=== PATIENT | male | born 1955 | race Caucasian/White ===

== ENCOUNTER 2018-05-29 00:03 | Observation (INO) ==
[2018-05-29] MEDS ORDERED: Ipratropium/Albuterol Neb 3 ML IH ONE (00:29)
[2018-05-29] MEDS ORDERED: methylPREDNISolone 125 MG/2 ML VIAL IVP ONE (00:29)
--- NOTE | 2018-05-29 00:33 | Emergency Department Note ---
Disposition Clinical Impression: Acute exacerbation of chronic obstructive airways disease, Hemoptysis Disposition: Admitted As Inpatient Condition: Fair Time of Disposition: 03:00 SOB HPI - General Chief Complaint: ED Shortness of Breath/Dyspnea Stated Complaint: KARTHIK Time Seen by Provider: 05/29/18 00:18 Source: patient, family Mode of arrival: private vehicle Limitations: no limitations Nursing Notes Reviewed: Yes Vital Signs Reviewed: Yes - History of Present Illness Pt is a 63M that had a bronchoscopy with EBUS on Friday the at this facility, and then noted increased coughing with production of small amounts of blood in his sputum starting at 1100 on the . Pt has been short of breath all day, but was unable to take a day off for fear of losing his job. Pt is denying fevers or chills, but is endorsing some chest pain located in his sub xiphoid region and only occurs when he coughs. Pt smokes approx 8-10 ciggarettes per day and uses marijuana every day, but is trying to cut back. - Related Data Previous Rx's Medication Instructions Recorded GuaiFENesin/Codeine [Robitussin 10 ml PO Q6HR #120 liquid 02/27/16 w/Codeine] Levofloxacin [Levaquin] 750 mg PO DAILY #10 tablet 02/27/16 Albuterol Sulfate [Albuterol 2 puff IH Q4H PRN #1 inh 12/02/17 Inhaler] Clindamycin [Cleocin] 450 mg PO TID 10 Days #90 capsule 12/02/17 predniSONE [PredniSONE] 40 mg PO DAILY 5 Days #10 tablet 12/02/17 Allergies Allergy/AdvReac Type Severity Reaction Status Date / Time haloperidol [From Haldol] Allergy See Verified 12/01/17 23:36 Comments Penicillins Allergy See Verified 12/01/17 23:36 Comments Constitutional: Denies: fever, chills Cardiovascular: Reports: chest pain (with coughing), dyspnea on exertion Respiratory: Reports: cough, dyspnea, wheezes Gastrointestinal: Reports: abdominal pain. Denies: nausea, vomiting, diarrhea, constipation Neurological: Reports: weakness Past Medical History - Past Medical History Medical history: Reports: COPD, other Surgical history: Reports: non-contributory Psychiatric history: Reports: no psych history - Social History Smoking Status: Current every day smoker Smokeless Tobacco Status: No Alcohol use: Reports: none Drug use: Reports: none Physical Exam - General Limitations: no limitations General appearance: alert, in no apparent distress - Head Head exam: atraumatic, normocephalic - Eye Eye exam: Present: normal appearance, PERRL, EOMI - ENT ENT exam: normal exam, normal oropharynx - Neck Neck exam: Present: normal inspection, full ROM - Chest Chest inspection: Present: normal inspection, symmetric chest wall rise - Respiratory Respiratory exam: Present: wheezes, prolonged expiratory phase - Cardiovascular Cardiovascular exam: Present: regular rate, normal rhythm - Abdominal Exam Abdominal exam: Present: soft, tenderness - Extremities Exam Extremities exam: Present: normal inspection, full ROM - Back Exam Back exam: Present: normal inspection, full ROM - Neurological Exam Neurological exam: Present: alert - Psychiatric Psychiatric exam: Present: normal affect, normal mood - Skin Skin exam: Present: warm, dry, intact Course Course Narrative: Pt was 88% on RA in triage and was placed on 4L O2 by NC. Will get screening labs to include CBC, BMP, troponin. EKG. Pt is complaining of hemoptysis, is feeling short of breath. Despite recent procedure, will get CTA to r/o parenchymal hemorrhage/PE. Disposition pending. Vital Signs Temperature 98.1 F 05/29/18 00:06 Pulse Rate 95 05/29/18 00:06 Respiratory Rate 22 05/29/18 00:06 Blood Pressure 135/94 05/29/18 00:06 O2 Sat by Pulse Oximetry 88 05/29/18 00:06 Temperature 98.1 F 05/29/18 00:06 Pulse Rate 91 05/29/18 01:33 Respiratory Rate 21 05/29/18 01:33 Blood Pressure 136/93 05/29/18 01:33 O2 Sat by Pulse Oximetry 96 05/29/18 01:33 Oxygen Delivery Oxygen Delivery Nasal Cannula Shortness of Breath/Dyspnea - MDM Narrative Medical decision making narrative: Pts lab work was not consistent with infectious etiology but CTA showed opacifications that could be bronch fluid/blood, additionally, pt is not normally oxygen dependent and is requiring 2L to maintain saturation >95%. He was wheezing in all lung saez on arrival but after 3 breathing treatments, his wheezing has improved to where he only has inspiratory wheezing on the left upper and middle areas. Pt remains very short of breath with any movement and will drop saturation to 86-88% when taken off oxygen. Hospitalist, Dr. Shane chavez. Pt remained hemodynamically stable while in the department. Saturation would drop to 86% on RA, so pt was kept on 2-3L NC O2. - Medical Records Medical records reviewed: Yes I reviewed the patient's medical records. - Lab Data Lab results reviewed: Yes I reviewed the patient's lab results. Result diagrams: 05/29/18 00:29 05/29/18 00:29 Lab Results 05/29/18 05/29/18 Range/Units 00:29 00:29 WBC 10.6 (4.3-11.1) K/mcL RBC 4.12 L (4.19-5.50) M/mcL Hgb 12.0 L (12.9-16.9) g/dL Hct 36.4 L (37.5-50.1) % MCV 88.3 (83.0-100.0) fL MCH 29.1 (28.0-33.3) pg MCHC 33.0 (31.6-35.5) g/dL RDW 14.2 (11.5-14.5) % Plt Count 180 (140-400) K/mcL MPV 8.9 L (9.4-12.4) fL Immature Gran % 0.2 (0-4) % Seg Neutrophils % 69.9 % Lymphocytes % 21.1 % Monocytes % 8.0 % Eosinophils % 0.3 % Basophils % 0.5 % Neutrophils # 7.4 (1.6-8.9) K/mcL Lymphocytes # 2.2 (0.6-4.6) K/mcL Monocytes # 0.8 (0.0-1.3) K/mcL Eosinophils # 0.0 (0.0-0.6) K/mcL Basophils # 0.1 (0.0-0.2) K/mcL Sodium 142 (136-145) mEq/L Potassium 3.9 (3.5-5.1) mEq/L Chloride 107 (98-107) mEq/L Carbon Dioxide 29 (23-29) mEq/L BUN 20 (8-23) mg/dL Creatinine 0.92 (0.70-1.30) mg/dL Est GFR ( Amer) > 60 (> 60) Est GFR (Non-Af Amer) > 60 (> 60) BUN/Creatinine Ratio 22 (6-26) Glucose 110 H (70-105) mg/dL Calculated Osmolality 297 (280-300) Calcium 9.2 (8.6-10.3) mg/dL Troponin I < 0.03 (< 0.04) ng/mL - Radiology Data Radiology results reviewed: Yes I reviewed the patient's radiology results. Chest CTA 05/29/18 00:38 IMPRESSION: 1. No definite scan evidence for pulmonary embolus. 2. Airway opacification could be due to bronchoscopy fluid, secretions, or hemorrhage. 3. Otherwise no change. D/ / Carlos Greene MD / Carlos Greene MD Interpreting Provider: Carlos Greene MD - EKG Data EKG attestation: Yes I reviewed and interpreted this EKG. EKG results narrative: HR 62 and regular. Rhythm sinus. Birney 91 and mildly rightward. MO 120, QRS 86, QTc 397 - all WNL. Baseline wander in V3. No evidence of ST elevation or depression. Poor R wave progression with isoelectric point between V4-V5.
[2018-05-29] MEDS ORDERED: Isovue-370 500 ML BOTTLE IVP ONE (00:38)
[2018-05-29 00:39] LABS: Basophils # 0.1 K/mcL (0.0-0.2); Basophils % 0.5 %; Eosinophils % 0.3 %; Hematocrit 36.4 % (37.5-50.1); Immature Granulocytes % 0.2 % (0-4); Lymphocytes # 2.2 K/mcL (0.6-4.6); Lymphocytes % 21.1 %; Mean Corpuscular Hemoglobin 29.1 pg (28.0-33.3); Mean Corpuscular Volume 88.3 fL (83.0-100.0); Mean Platelet Volume 8.9 fL (9.4-12.4); Monocytes # 0.8 K/mcL (0.0-1.3); Neutrophils # 7.4 K/mcL (1.6-8.9); Platelet Count 180 K/mcL (140-400); Red Blood Count 4.12 M/mcL (4.19-5.50); Red Cell Distribution Width 14.2 % (11.5-14.5); Segmented Neutrophils % 69.9 %
[2018-05-29 01:01] LABS: BUN/Creatinine Ratio 22 (6-26); Blood Urea Nitrogen 20 mg/dL (8-23); Calcium 9.2 mg/dL (8.6-10.3); Carbon Dioxide 29 mEq/L (23-29); Chloride 107 mEq/L (98-107); Glucose 110 mg/dL (70-105); Osmolality,Calculated 297 (280-300); Potassium 3.9 mEq/L (3.5-5.1); Sodium 142 mEq/L (136-145); Troponin I < 0.03 ng/mL (< 0.04); eGFR For Non-African Americans > 60 (> 60)
[2018-05-29] MEDS ORDERED: Acetaminophen 325 MG TABLET PO PRN (02:53)
[2018-05-29] MEDS ORDERED: traMADol 50 MG TABLET PO PRN (02:53)
[2018-05-29] MEDS ORDERED: GuaiFENesin/Codeine Oral Soln 5 ML UDC PO PRN (03:21)
--- NOTE | 2018-05-29 03:24 | Internal Med History&Physical ---
Date of Encounter: 05/29/18 Time of Encounter: 03:20 Internal Medicine - H&P: HPI Chief complaint: Shortness of breath Admitted From: Home Plans for Post Hospital Care: Home History of present illness: Bipin Sosa is a 63-year-old male chronic tobacco and marijuana smoker with COPD who has been evaluated by the pulmonary service for a lung nodule found on CT scan. He was seen to have a spiculated nodule in the right basilar right lower lobe. He underwent bronchoscopy on 05/27 with a transbronchial nee dle aspiration of the lesion in the right hilum via EBUS with specimen sent for cytology. He states that when he went home he noticed increased coughing with production of small amounts of sputum yesterday morning. He progressively became more short of breath as the day progressed with some pain in his sub-xyphoid region when he coughs. He says he did not seek medical attention earlier as he was afraid to lose his job. He continues to smoke. In the ER he was notably wheezy and hypoxic on room air. He received IV steroids and nebulizer therapy. CTA done showed airway opacification which could be due to bronchoscopy fluid, secretions or hemorrhage but no other acute findings. He is admitted for further observation. Past Med Surg Social Fam HX - Past Medical History Medical history: COPD, other Additional medical history: pneumonia Psychiatric history: no psych history - Past Surgical History Surgical History: non-contributory Additional surgical history: lung biopsy - Social History Smoking Status: Current every day smoker Smokeless Tobacco Status: No Alcohol use: none Drug use: none Internal Medicine - H&P: Meds GuaiFENesin/Codeine [Robitussin w/Codeine] 10 ml PO Q6HR #120 liquid 02/27/16 [Rx] Levofloxacin [Levaquin] 750 mg PO DAILY #10 tablet 02/27/16 [Rx] Albuterol Sulfate [Albuterol Inhaler] 2 puff IH Q4H PRN #1 inh 12/02/17 [Rx] RX: Clindamycin [Cleocin] 450 mg PO TID 10 Days #90 capsule 12/02/17 [Rx] predniSONE [PredniSONE] 40 mg PO DAILY 5 Days #10 tablet 12/02/17 [Rx] Allergy/AdvReac Type Severity Reaction Status Date / Time haloperidol [From Haldol] Allergy See Verified 12/01/17 23:36 Comments Penicillins Allergy See Verified 12/01/17 23:36 Comments All Systems PM: A 10-system review of systems was performed and is negative for pertinent findings except as documented above in the HPI.Family history reviewed and found non-contributory. - Constitutional Vitals: Temp Pulse Resp BP Pulse Ox 98.1 F 91 21 136/93 96 05/29/18 00:06 05/29/18 01:33 05/29/18 01:33 05/29/18 01:33 05/29/18 01:33 Exam: Vitals: Reviewed General: Thin white man lying in bed in NAD Skin: Warm and supple. HEENT: Moist mucous membranes. No conjunctivae pallor. Neck: No lymphadenopathy. No JVD. No carotid bruits. No palpable thyroid. Chest: Scattered wheezes in the upper lung saez. Heart: Normal S1 & S2; rhythmic. No rubs or murmurs. Abdomen: Epigastric tenderness to palpation. No peritoneal reaction. Extremities: No clubbing, cyanosis or edema. No calf tenderness. Normal distal pulses. Neurological: Awake, alert and oriented to person, place and time. No focal deficits. Psych: Affect appropriate. Internal Med - H&P Results - Labs CBC & Chem 7: 05/29/18 00:29 05/29/18 00:29 Labs: Short CBC 05/29/18 Range/Units 00:29 WBC 10.6 (4.3-11.1) K/mcL Hgb 12.0 L (12.9-16.9) g/dL Hct 36.4 L (37.5-50.1) % Plt Count 180 (140-400) K/mcL Neutrophils # 7.4 (1.6-8.9) K/mcL BMP 05/29/18 00:29 Sodium 142 Potassium 3.9 Chloride 107 Carbon Dioxide 29 BUN 20 Creatinine 0.92 Glucose 110 H Calcium 9.2 Cardiac Enzymes 05/29/18 Range/Units 00:29 Troponin I < 0.03 (< 0.04) ng/mL - Impressions ITS Impressions Chest CTA 05/29/18 00:38 IMPRESSION: 1. No definite scan evidence for pulmonary embolus. 2. Airway opacification could be due to bronchoscopy fluid, secretions, or hemorrhage. 3. Otherwise no change. D/ / Carlos Greene MD / Carlos Greene MD Interpreting Provider: Carlos Greene MD - Assessment and plan (1) Acute respiratory failure with hypoxia Current Visit: Yes Status: Acute Assessment and plan: Seen to develop after bronchoscopy but the etiology remains unclear. No signs of acute complication such as pneumothorax/mediastinum noted. Possibly multifactorial for acumulation of secretions, anesthetic effect and bleeding from site of biopsy. Will continue to monitor and provide symptomatic relief with anti-tussive agents, nebulizer steroid and steroids. He will benefit from pulmonary follow up. (2) Acute exacerbation of chronic obstructive airways disease Current Visit: Yes Status: Acute Assessment and plan: Therapy as discussed above. (3) Hemoptysis Current Visit: Yes Status: Acute Assessment and plan: Steroids and nebulizer therapy as indicated above. Close respiratory watch. Likely post-procedural complication. (4) Smoker Current Visit: Yes Status: Acute Assessment and plan: 5 minutes were spent counseling and educating the patient on this habit. gate services supervisor and resources were made available. (5) DVT prophylaxis Current Visit: Yes Status: Acute Assessment and plan: IPC ordered in the setting of hemoptysis and recent biopsy. - Time Spent With Patient Total time spent is greater than 50% in coordination of care (as documented) at patient's floor/unit and/or counseling patient: Greater than 35 minutes
--- NOTE | 2018-05-29 04:01 | Emergency Department Note ---
Disposition Clinical Impression: Acute exacerbation of chronic obstructive airways disease, Hemoptysis Disposition: Admitted As Inpatient Condition: Fair General Adult HPI - General Chief complaint: ED Shortness of Breath/Dyspnea Stated complaint: KARTHIK Time Seen by Provider: 05/29/18 00:18 Source: patient, family Mode of arrival: private vehicle Limitations: no limitations Nursing Notes Reviewed: Yes Vital Signs Reviewed: Yes - History of Present Illness Pain Scale: 0 - Related Data Previous Rx's Medication Instructions Recorded GuaiFENesin/Codeine [Robitussin 10 ml PO Q6HR #120 liquid 02/27/16 w/Codeine] Levofloxacin [Levaquin] 750 mg PO DAILY #10 tablet 02/27/16 Albuterol Sulfate [Albuterol 2 puff IH Q4H PRN #1 inh 12/02/17 Inhaler] Clindamycin [Cleocin] 450 mg PO TID 10 Days #90 capsule 12/02/17 predniSONE [PredniSONE] 40 mg PO DAILY 5 Days #10 tablet 12/02/17 Allergies Allergy/AdvReac Type Severity Reaction Status Date / Time haloperidol [From Haldol] Allergy See Verified 12/01/17 23:36 Comments Penicillins Allergy See Verified 12/01/17 23:36 Comments Constitutional: Denies: fever, chills Cardiovascular: Reports: chest pain (with coughing), dyspnea on exertion Respiratory: Reports: cough, dyspnea, wheezes Gastrointestinal: Reports: abdominal pain. Denies: nausea, vomiting, diarrhea, constipation Neurological: Reports: weakness Past Medical History - Past Medical History Medical history: Reports: COPD, other Surgical history: Reports: non-contributory Psychiatric history: Reports: no psych history - Social History Smoking Status: Current every day smoker Smokeless Tobacco Status: No Alcohol use: Reports: none Drug use: Reports: none Physical Exam - General Limitations: no limitations General appearance: alert, in no apparent distress Course Vital Signs Temperature 98.1 F 05/29/18 00:06 Pulse Rate 95 05/29/18 00:06 Respiratory Rate 05/29/18 00:06 Blood Pressure 135/94 05/29/18 00:06 O2 Sat by Pulse Oximetry 88 05/29/18 00:06 Temperature 98.1 F 05/29/18 00:06 Pulse Rate 91 05/29/18 01:33 Respiratory Rate 22 05/29/18 03:22 Blood Pressure 127/84 05/29/18 03:22 O2 Sat by Pulse Oximetry 96 05/29/18 01:33 Oxygen Delivery Oxygen Delivery Nasal Cannula Medical Decision Making - Medical Records Medical records reviewed: Yes I reviewed the patient's medical records. - Lab Data Lab results reviewed: Yes I reviewed the patient's lab results. Result diagrams: 05/29/18 00:29 05/29/18 00:29 Lab Results 05/29/18 05/29/18 Range/Units 00:29 00:29 WBC 10.6 (4.3-11.1) K/mcL RBC 4.12 L (4.19-5.50) M/mcL Hgb 12.0 L (12.9-16.9) g/dL Hct 36.4 L (37.5-50.1) % MCV 88.3 (83.0-100.0) fL MCH 29.1 (28.0-33.3) pg MCHC 33.0 (31.6-35.5) g/dL RDW 14.2 (11.5-14.5) % Plt Count 180 (140-400) K/mcL MPV 8.9 L (9.4-12.4) fL Immature Gran % 0.2 (0-4) % Seg Neutrophils % 69.9 % Lymphocytes % 21.1 % Monocytes % 8.0 % Eosinophils % 0.3 % Basophils % 0.5 % Neutrophils # 7.4 (1.6-8.9) K/mcL Lymphocytes # 2.2 (0.6-4.6) K/mcL Monocytes # 0.8 (0.0-1.3) K/mcL Eosinophils # 0.0 (0.0-0.6) K/mcL Basophils # 0.1 (0.0-0.2) K/mcL Sodium 142 (136-145) mEq/L Potassium 3.9 (3.5-5.1) mEq/L Chloride 107 (98-107) mEq/L Carbon Dioxide 29 (23-29) mEq/L BUN 20 (8-23) mg/dL Creatinine 0.92 (0.70-1.30) mg/dL Est GFR ( Amer) > 60 (> 60) Est GFR (Non-Af Amer) > 60 (> 60) BUN/Creatinine Ratio 22 (6-26) Glucose 110 H (70-105) mg/dL Calculated Osmolality 297 (280-300) Calcium 9.2 (8.6-10.3) mg/dL Troponin I < 0.03 (< 0.04) ng/mL - Radiology Data Radiology results reviewed: Yes I reviewed the patient's radiology results. Chest CTA 05/29/18 00:38 IMPRESSION: 1. No definite scan evidence for pulmonary embolus. 2. Airway opacification could be due to bronchoscopy fluid, secretions, or hemorrhage. 3. Otherwise no change. D/ / Carlos Greene MD / Carlos Greene MD Interpreting Provider: Carlos Greene MD - EKG Data EKG #1 EKG attestation: Yes I reviewed and interpreted this EKG. EKG results narrative: EKG shows a normal sinus rhythm with ventricular rate is 76. Right axis deviation. No acute ST segment elevation or depression. No significant change compared to prior EKG dated 04/12/2013. Attestation Statement - Attestation Attestation: I, Glenroy Elmore MD, personally evaluated this patient and discussed their management with the resident physician. I reviewed the resident's note and agree with the documented findings, medical decision making, and plan of care. 63-year-old male presents to the emergency department with complaint of increasing shortness of breath and hemoptysis over the past 36 hours. Patient has a history of COPD but is not on home oxygen. He had a bronchoscopy with multiple biopsies about 36 hours ago for some pulmonary nodules. He states that since the bronchoscopy he has gone downhill. Since going home he has been increasingly more short of breath. He has had a cough with some hemoptysis. Also some sharp chest pains with coughing or deep breathing. He states the shortness of breath is worse with exertion. On examination patient is a well-developed well-nourished male in no acute distress. He is alert and oriented 3. There is no cyanosis or diaphoresis. Breath sounds are equal bilaterally with some left inspiratory mid lung wheezes. Heart regular rate and rhythm. Abdomen soft and nontender with normal bowel sounds. EKG shows normal sinus rhythm with no acute ischemic changes. CTA of the chest obtained and showed no evidence of pulmonary embolism. It did show some opacification of airways which could be due to bronchoscopy fluids or secretions or hemorrhage. Labs reviewed. Patient received 3 DuoNeb treatments and Solu-Medrol here in the emergency department. He continued to complain of shortness of breath after the treatments, especially with any exertion. He states he got really short of breath when he had moved from the stretcher onto the CT table. Patient's nasal oxygen was discontinued and his oxygen saturation dropped down as low as 86% on room air while at rest sitting up on the stretcher. The hospitalist, Dr. Lynn, was consulted and accepted admission of the patient.
[2018-05-29] MEDS: Ipratropium/Albuterol Neb 3 ML IH SCH ×5 (04:48→20:29)
[2018-05-29] MEDS: predniSONE 20 MG TABLET PO SCH (10:13)
--- NOTE | 2018-05-29 11:54 | Event Note ---
Date of Encounter: 05/29/18 Time of Encounter: 11:52 Patient was seen and examined earlier this morning by hospitalist services. I have seen and examined patient bedside currently patient is in bed denies any chest pain or shortness of breath at this time. However he states that he does experience chest pain during coughing as well as shortness of breath on exertion. Denies any hemoptysis at this time or sputum production. Does not appear to be in any respiratory distress currently on oxygen at 2 L nasal cannula normally does not require oxygen supplementation. I did review the treatment plan with the patient and his who are bedside who verbalized understanding. I did discuss this case with pulmonology who will see patient up on consult. Currently patient is hemodynamically stable at this time.
--- NOTE | 2018-05-29 12:28 | Pulmonology Consult Note ---
<Fatuma Blanoc - Last Filed: 05/29/18 14:15> Date of Encounter: 05/29/18 Time of Encounter: 12:10 Assessment and Plan (1) Acute respiratory failure with hypoxia Current Visit: Yes Status: Acute Pt is a 63-year-old male with past medical history significant for COPD with chronic tobacco and marijuana use, recently evaluated for lung nodule on CT scan suspicious for malignancy. Patient notes that upon going home after bronchoscopy on 05/27/18, he has had increasing cough with production of small amounts of sputum. - Requiring increasing amount of O2 due to increased SOB - Pain with coughing, especially under B/L lower ribs - Three episodes of bloody sputum; none since admission Chest CTA (05/29/18): - No definite scan evidence for PE - Airway opacification could could be due to bronchoscopy fluid, secretions, or hemorrhage PLAN: Acute respiratory failure with hypoxia likely secondary to COPD exacerbation with mild pulmonary hemorrhage s/p bronchoscopy and EBUS 2 days ago; No evidence of PE or current bleed - Cont supplemental O2; titrate to keep O2 sat > 88% - Cont prednisone 40mg QD for 5 days; discharge with prednisone taper; 10mg every 3 days - Cont scheduled Duonebs - Out of bed into Chair - PT/OT - Incentive Spirometry - Walk test prior to discharge; may need to send home with supplemental O2 - Follow up outpatient Pulm with Dr. Dong - will decide on continuing O2 at that point - Cough Medication/ Pain control PRN to encourage respiration (2) Acute exacerbation of chronic obstructive airways disease Current Visit: Yes Status: Acute History of severe COPD PFTs (02/26/18): Spirometry shows severe airway obstructive pattern Following Bronchodilator, there is significant improvement in FVC by 17%. Following Bronchodilator, there is significant improvement in FEV1 by 12%. MVV is decreased. Increased Lung Volumes reveal hyperinflation and air trapping. Diffusion Capacity is severely reduced. Flow Volume Loop: Obstructive PLAN: Likely acute COPD exacerbation secondary to bronchoscopy with mild pulmonary hemorrhage leading to inflammation of airways - Cont Prednisone 40mg QD for 5 days; taper 10mg every 3 days thereafter - Cont scheduled duonebs - Out of bed into chair - PT/OT - Cont O2 via NC; titrate to keep > 88%; may need O2 upon discharge - perform walk test prior to discharge - Follow up outpatient Pulm with Dr. Dong to evaluate duration of O2 use (3) Pulmonary hemorrhage Current Visit: Yes Status: Acute S/P Bronchoscopy with EBUS and biopsy - Seems to be resolving - No acute concerns PLAN: - Cont to monitor vitals; titrate to keep O2 sat > 88% - Pain control PRN to encourage respiration - Plan as above (4) Smoker Current Visit: Yes Status: Acute 0.25 PPD smoker, and daily marijuana smoker Discussed smoking cessation PLAN: - Nicotine Patch PRN History of Present Illness Consult date: 05/29/18 Requesting physician: Cristina Shabazz Reason for consult: dyspnea, other (Hemoptysis) Chief complaint: Hemoptysis History of present illness: Pt is a 63-year-old male with past medical history significant for COPD with chronic tobacco and marijuana use, recently evaluated for lung nodule on CT scan suspicious for malignancy. Patient notes that upon going home after bronchoscopy on 05/27/18, he has had increasing cough with production of small amounts of sputum. States that every time he coughs, he feels sharp 10 out of 10 pain underneath his ribs bilaterally. Additionally he has had increasing shortness of breath with exertion, so much so that he has been having trouble walking from his bed in his room to the bathroom. States that he tried to go to work yesterday, but he had stopped every couple minutes to catch his breath. Notes 3 instances during which he coughed up sputum with a nickel-sized amount blood. At baseline at home, patient does not use any oxygen. States only medications include rescue inhaler as needed. Notes most of symptoms began after bronchoscopy procedure 2 days ago. Currently resting in bed in no acute distress. However, is noticeably short of breath with speaking to me. O2 sats are appropriate on 3 L of O2 via nasal cannula. Lungs clear to auscultationno wheezes, rales, rhonchi, crackles. Pulmonology consulted for further evaluation of hemoptysis. Otherwise, denies fevers/chills, headache, ear pain, nasal,/sinus congestion, sore throat, chest pain, palpitations, wheezing, abdominal pain, nausea, vomiting, diarrhea. Notes he smoked 3 and half cigarettes yesterday, and 1 marijuana cigarette. Bronchoscopy (05/27/18): - Right Lower Lobe Nodule - Adenopathy - Abnormal CT scan of the chest - Bronchitic changes were found - Transbronchial brushings, transbronchial lung biopsies, BLL, transbronchial needle aspiration, EBUS performed - Rapid on-site evaluation: Presents cytology of lesion in right hilum suggestive of atypical cells Right Lower Lobe Lung Biopsy (05/27/18): Reactive bronchial mucosa, cartilage and congested vessels Chest CTA (05/29/18): - No definite scan evidence for PE - Airway opacification could could be due to bronchoscopy fluid, secretions, or hemorrhage Past Med Surg Social Fam HX - Past Medical History Attestation: Yes The following information was validated with the patient. Source: patient, old records reviewed Medical history: COPD, other Additional medical history: pneumonia Psychiatric history: no psych history - Past Surgical History Surgical History: non-contributory Additional surgical history: lung biopsy - Social History Smoking Status: Current every day smoker Packs per day: 0.25 Smokeless Tobacco Status: No Alcohol use: none Drug use: none - Family History Mother Name: TESSIE Family Member Ethnicity: Non- Living Status: Age at : 72 Cause of : HEART DISEASE Hx Family Cardiac Disorders: Yes Hx Family Respiratory Disorders: No Hx Family Cancer: No Hx Family GI Disorders: No Hx Family Genitourinary Disorders: No Hx Family Endocrine Disorder: No Hx Family Musculoskeletal Disorders: No Hx Family Neuromuscular Disorders: No Hx Family Neurologic Disorders: No Hx Family HEENT Disorders: No Hx Family Autoimmune Disorders: No Hx Family Reproductive Disorders: No Hx Family Psychosocial Disorders: No Hx Family Medical Disorders: No Medications and Allergies GuaiFENesin/Codeine [Robitussin w/Codeine] 10 ml PO Q6HR #120 liquid 02/27/16 [Rx] Albuterol Sulfate [Albuterol Inhaler] 2 puff IH Q4H PRN #1 inh 12/02/17 [Rx] Ibuprofen 800 mg PO DAILY PRN 05/29/18 [History] Allergy/AdvReac Type Severity Reaction Status Date / Time haloperidol [From Haldol] Allergy See Verified 12/01/17 23:36 Comments Penicillins Allergy See Verified 12/01/17 23:36 Comments All Systems: The remainder of the systems were reviewed and are negative - Constitutional Constitutional: chills, fatigue, no anorexia, no fever(s), no headache(s), no weakness - EENT Eyes: no loss of vision Ears: no decreased hearing Nose, mouth and throat: no dizziness, no headache(s), no nasal congestion, no post-nasal drip, no sinus pain, no sore throat - Cardiovascular Cardiovascular: dyspnea, dyspnea on exertion, no chest pain, no chest pain at rest, no radiating jaw, neck or arm pain, no lightheadedness, no palpitations - Respiratory Respiratory: cough, dyspnea, hemoptysis, dyspnea on exertion, no wheezing, no chest congestion - Gastrointestinal Gastrointestinal: no abdominal pain, no diarrhea, no nausea, no vomiting - Musculoskeletal Musculoskeletal: no weakness, no back pain - Integumentary Integumentary: no rash - Neurological Neurological: no dizziness, no headache(s) Physical Examination Vital Signs: Vital Signs, Last 4 Hours Temp Pulse Resp BP Pulse Ox 05/29/18 11:45 17 98 05/29/18 11:29 97.7 F 64 15 122/76 97 General appearance: no acute distress, alert Eyes: nonicteric ENT: oropharynx moist Neck: supple Effort: normal Auscultation: bilateral: clear (No wheezes, rales, rhonchi), other (Chest wall tender to palpation underneath bilateral ribs; otherwise no anterior chest wall tenderness) Cardiovascular: regular rate and rhythm Gastrointestinal: normoactive bowel sounds, soft, non-tender, non-distended Integumentary: normal Extremities: no cyanosis, no edema normal mental status, non-focal exam, pupils equal and round, CN II-XII normal mood appropriate, affect normal Results - Laboratory Findings CBC and BMP: 05/29/18 00:29 05/29/18 00:29 Abnormal lab findings: Abnormal lab results RBC 4.12 M/mcL (4.19-5.50) L 05/29/18 00:29 Hgb 12.0 g/dL (12.9-16.9) L 05/29/18 00:29 Hct 36.4 % (37.5-50.1) L 05/29/18 00:29 MPV 8.9 fL (9.4-12.4) L 05/29/18 00:29 Glucose 110 mg/dL (70-105) H 05/29/18 00:29 - Clinical Findings Intake & Output: Intake & Output 05/28/18 05/29/18 05/29/18 23:59 07:59 15:59 Weight 64.864 kg Consult Discharge Plan - Plan Referrals: Guero Joe DO [Primary Care Provider] - <MarielaMadhu W - Last Filed: 05/29/18 14:37> Date of Encounter: 05/29/18 All Systems: The remainder of the systems were reviewed and are negative Physical Examination Vital Signs: Vital Signs, Last 4 Hours Temp Pulse Resp BP Pulse Ox 05/29/18 11:45 17 98 05/29/18 11:29 97.7 F 64 15 122/76 97 Results - Laboratory Findings CBC and BMP: 05/29/18 00:29 05/29/18 00:29 Abnormal lab findings: Abnormal lab results RBC 4.12 M/mcL (4.19-5.50) L 05/29/18 00:29 Hgb 12.0 g/dL (12.9-16.9) L 05/29/18 00:29 Hct 36.4 % (37.5-50.1) L 05/29/18 00:29 MPV 8.9 fL (9.4-12.4) L 05/29/18 00:29 Glucose 110 mg/dL (70-105) H 05/29/18 00:29 - Clinical Findings Intake & Output: Intake & Output 05/28/18 05/29/18 05/29/18 23:59 07:59 15:59 Intake Total 360 / 360 Balance 360 / 360 Weight 64.864 kg - Attending Attestation I examined this patient and my medical decision-making was reviewed with the Resident Physician. I agree with the documented findings, disposition and treatment plan as described except to the extent set forth below. We independently had [id number] contact with the patient Patient seen and examined at bedside Labs, radiology, chart personally reviewed. Impression/Recs: Acute hypoxic respiratory failure Pulmonary hemorrhage - postprocedural COPD with exacerbation Lung nodules Tobacco abuse Overall Mr. Sosa is doing okay today he will need a steroid burst followed by taper. May need oxygen for short period of time but suspected this can be weaned off in clinic would recommend walking pulse oximetry 5 prior to discharge. Follow-up in pulmonary clinic in one week this has already been scheduled to discuss results of biopsy for lung nodules for which primary lung malignancy is in the differential. Tobacco cessation encouraged
[2018-05-30] MEDS: Ipratropium/Albuterol Neb 3 ML IH SCH ×7 (00:15→23:55)
[2018-05-30] MEDS: predniSONE 20 MG TABLET PO SCH (08:45)
--- NOTE | 2018-05-30 09:57 | Electrocardiograph Report ---
[address] [address] Test Date: 2018-05-29 Pat Name: Bipin Sosa Department: EXAM3 Room: 3B Gender: M Gate Watchman: : 1955 Requested By: Marian Lindsey Order Number: [id number] Reading MD: Analia Paniagua Measurements Intervals [place] Rate: 76 P: 84 MD: 120 QRS: 91 QRSD: 86 T: 67 QT: 353 QTc: 397 Interpretive Statements Sinus rhythm Right axis deviation Electronically Signed On 05-30-2018 9:55:56 EST by Analia Paniagua
--- NOTE | 2018-05-30 18:31 | Internal Med Progress Note ---
Hospitalist Progress Note - Encounter Date of Encounter: 05/30/18 Time of Encounter: 11:00 - Subjective Interval History: Patient seen and examined at bedside currently patient and bleeding back in the bathroom appears to be experiencing shortness of breath. He is requiring oxygen supplementation at this time. Noted conversational dyspnea. Review treatment plan with the patient who verbalized understanding - Exam Vitals: Temp Pulse Resp BP Pulse Ox 98.0 F 93 18 136/83 93 05/30/18 15:54 05/30/18 15:54 05/30/18 16:03 05/30/18 15:54 05/30/18 16:06 Exam: Vitals: Reviewed General: Thin white man appears to be in mild respiratory distress Skin: Warm and supple. HEENT: Moist mucous membranes. No conjunctivae pallor. Neck: No lymphadenopathy. No JVD. No carotid bruits. No palpable thyroid. Chest: Faint Scattered wheezes in the upper lung saez. Heart: Normal S1 & S2; rhythmic. No rubs or murmurs. Abdomen: Epigastric tenderness to palpation. No peritoneal reaction. Extremities: No clubbing, cyanosis or edema. No calf tenderness. Normal distal pulses. Neurological: Awake, alert and oriented to person, place and time. No focal deficits. Psych: Affect appropriate. - Assessment and Plan (1) Acute exacerbation of chronic obstructive airways disease Current Visit: Yes Status: Acute Assessment and Plan: Continue with oxygen supplementation Continue with prednisone 40 mg daily for 5 days discharge are prednisone taper 10 mg every 3 days Continue with DuoNeb's Encourage to ambulate. Incentive spirometry PT OT Walk test prior to discharge may require home oxygen (2) Hemoptysis Current Visit: Yes Status: Acute Assessment and Plan: Seen by pulmonary status post bronchoscopy with a Bosson biopsy appears to be resolving no hemoptysis today. Continue pain control encouraged to cough and deep breathe (3) Smoker Current Visit: Yes Status: Acute Assessment and Plan: Encourage smoking cessation (4) Acute respiratory failure with hypoxia Current Visit: Yes Status: Acute Assessment and Plan: Secondary to significant COPD and chronic tobacco marijuana use recently evalu ated for lung nodule CT scan suspicious for malignancy. Requiring increasing O2 supplementation Pain with cough continue with pain management Requires walk prior to discharge for home oxygen Continue with oxygen titrated to maintain SPO2 greater than 90% (5) DVT prophylaxis Current Visit: Yes Status: Acute Assessment and Plan: IPC ordered in the setting of hemoptysis and recent biopsy. - Time Spent with Patient Total time spent is greater than 50% in coordination of care (as documented) at patient's floor/unit and/or counseling patient: Internal Medicine: Result - Labs CBC & Chem 7: 05/29/18 00:29 05/29/18 00:29 Consult Discharge Plan - Plan Referrals: Guero Joe DO [Primary Care Provider] -
[2018-05-31] MEDS: Ipratropium/Albuterol Neb 3 ML IH SCH ×4 (04:36→16:01)
[2018-05-31] MEDS: predniSONE 20 MG TABLET PO SCH (08:37)
[2018-05-31 09:08] LABS: Basophils % 0.2 %; Eosinophils % 0.4 %; Hematocrit 37.4 % (37.5-50.1); Hemoglobin 12.4 g/dL (12.9-16.9); Immature Granulocytes % 0.3 % (0-4); Lymphocytes # 2.3 K/mcL (0.6-4.6); Lymphocytes % 22.6 %; Mean Corpuscular HGB Conc 33.2 g/dL (31.6-35.5); Mean Corpuscular Hemoglobin 29.5 pg (28.0-33.3); Mean Corpuscular Volume 88.8 fL (83.0-100.0); Mean Platelet Volume 9.4 fL (9.4-12.4); Monocytes # 0.7 K/mcL (0.0-1.3); Monocytes % 7.4 %; Neutrophils # 6.9 K/mcL (1.6-8.9); Platelet Count 189 K/mcL (140-400); Red Blood Count 4.21 M/mcL (4.19-5.50); Red Cell Distribution Width 14.6 % (11.5-14.5); Segmented Neutrophils % 69.1 %
[2018-05-31 09:26] LABS: BUN/Creatinine Ratio 27 (6-26); Blood Urea Nitrogen 18 mg/dL (8-23); Calcium 8.9 mg/dL (8.6-10.3); Carbon Dioxide 27 mEq/L (23-29); Chloride 108 mEq/L (98-107); Glucose 92 mg/dL (70-105); Osmolality,Calculated 294 (280-300); Potassium 3.6 mEq/L (3.5-5.1); Sodium 141 mEq/L (136-145); eGFR For Non-African Americans > 60 (> 60)
[2018-05-31 11:32] VITALS: BP 128/82
--- NOTE | 2018-05-31 13:34 | Discharge Summary ---
- NOTES TO OUTPATIENT PROVIDER Notes to Outpatient Provider: Follow-up with Dr. Dong -prednisone taper- qualified for home oxygen Date of Encounter: 05/31/18 Time of Encounter: 13:30 - Discharge Diagnosis (1) Acute exacerbation of chronic obstructive airways disease Priority: Primary Status: Acute (2) Hemoptysis Priority: Secondary Status: Acute (3) Smoker Priority: Secondary Status: Acute (4) Acute respiratory failure with hypoxia Priority: Primary Status: Acute Hospital course: Mr. Sosa is a 63 year old male past medical history significant for COPD with c hronic tobacco and marijuana use he was recently evaluated for lung nodules on CT scan suspicious for malignancy. He underwent a bronchoscopy on 05/27/18-rapid on-site evaluation cytology of lesions in right hilum suggestive of atypical cells and was discharged home. Since being discharged patient has been experiencing increasing shortness of breath small amounts of sputum. Every time the cough he had sharp pain 10 out 10 and increasing shortness of breath 2.8 was unable to ambulate. He did have a episodes where he had coughed up sputum with nickel-sized amount of blood. He normally does not wear oxygen at home. He presented to [facility] ER with the above complaints he had a chest CTA with no evidence of PE airway opacification could be due to bronchoscopy fluid secretions or hemorrhage. Patient was placed on steroids he was evaluated by pulmonology who recommends continuation of steroids with the lungs taper continue with bronchodilators patient may require home oxygen we will need to follow-up with pulmonary as an outpatient. Patient continued on oxygen and qualified for home oxygen. His respiratory state did improve and decrease cough and sputum production. Saturations have been stable with oxygen. Patient will be discharged home he was given prescription for DuoNeb's prednisone taper and Tessalon Perles. Advised to follow-up with pulmonology as well as primary care provider. Patient verbalized understanding. He is currently hemodynamically stable ready for discharge. - Time Spent with Patient Total time spent providing and/or coordinating discharge services: - Discharge Medications Prescriptions: Ipratropium/Albuterol Neb [Duoneb] 3 ml IH Q6HR #30 inhsol Benzonatate [Tessalon] 100 mg PO TID PRN #15 capsule PRN Reason: Cough predniSONE [PredniSONE] 10 mg PO DAILY #26 tablet Home Medications: Albuterol Sulfate [Albuterol Inhaler] 2 puff IH Q4H PRN #1 inh 12/02/17 [Rx] Ibuprofen [Ibu] 800 mg PO TID PRN 05/29/18 [History] Benzonatate [Tessalon] 100 mg PO TID PRN #15 capsule 05/31/18 [Rx] Ipratropium/Albuterol Neb [Duoneb] 3 ml IH Q6HR #30 inhsol 05/31/18 [Rx] predniSONE [PredniSONE] 10 mg PO DAILY #26 tablet 05/31/18 [Rx] Allergies/Adverse Reactions: Allergy/AdvReac Type Severity Reaction Status Date / Time haloperidol [From Haldol] Allergy See Verified 12/01/17 23:36 Comments Penicillins Allergy See Verified 12/01/17 23:36 Comments Date of admission: 05/29/18 03:04 Primary care physician: Guero Joe Consults: 05/29/18 09:15 Consult to Nurse Navigator [CONS] Routine Comment: COPD 05/29/18 11:49 Consult to Pulmonology [CONS] Routine Consulting Provider: [facility] [place] Reason for Consult: Hemoptysis Time Notified: 11:51 Call Completed: Yes Discharging clinician: Cristina Shabazz Anticipated date of discharge: 05/31/18 - Constitutional Vitals: Temp Pulse Resp BP Pulse Ox 97.5 F L 90 18 128/82 92 05/31/18 11:31 05/31/18 11:31 05/31/18 11:32 05/31/18 11:31 05/31/18 11:32 Exam: Vitals: Reviewed General: Thin white man appears to be in mild respiratory distress Skin: Warm and supple. HEENT: Moist mucous membranes. No conjunctivae pallor. Neck: No lymphadenopathy. No JVD. No carotid bruits. No palpable thyroid. Chest: Faint Scattered wheezes in the upper lung saez. Heart: Normal S1 & S2; rhythmic. No rubs or murmurs. Abdomen: Epigastric tenderness to palpation. No peritoneal reaction. Extremities: No clubbing, cyanosis or edema. No calf tenderness. Normal distal pulses. Neurological: Awake, alert and oriented to person, place and time. No focal deficits. Psych: Affect appropriate. - Patient Status Disposition: Home, Self-Care Condition: Fair Functional capacity at discharge: independent ambulation Overall status at discharge: patient is back to baseline - Discharge Instructions Follow Up With: Guero Joe DO [Primary Care Provider] - - Diet and Activity Activity: wear oxygen at all times Diet: advance to your usual diet
== END 2018-05-31 18:00 | disposition home or self-care (01) ==
LOC: EMEROOARM 00:03 → 3BNU 00:03 → SUATTDRO 03:04 → 3BNU 03:32
PROVIDERS: ADMIT Internal Medicine; ATTEND Internal Medicine